=== PATIENT | female | born 1930 | race Caucasian/White ===

== ENCOUNTER 2017-02-21 16:50 | Emergency (ER) | payer OTHER, BC ==
[~2017-02-21] VITALS: Ht 147.3 cm; Wt 54.5 kg
[2017-02-21] MEDS ORDERED: ASPI81TA5 PO (17:13)
[2017-02-21] MEDS ORDERED: LORA-373 PO (17:15)
[2017-02-21] MEDS ORDERED: METO25TA6 PO (17:15)
[2017-02-21] MEDS ORDERED: DONE10TA7 PO (17:16)
[2017-02-21] MEDS ORDERED: CITA10TA4 PO (17:17)
[2017-02-21] MEDS ORDERED: ESOM1CAP16 PO (17:18)
[2017-02-21 17:19] VITALS: BP 182/84; PULSE 70; RESP 24; TEMP 97.7; O2SAT 94
[2017-02-21] MEDS ORDERED: fentanyl T-DERMAL (17:23)
[2017-02-21 17:25] VITALS: O2SAT 94
[2017-02-21 17:33] LABS: AUTOMATED NEUTROPHIL # 7.7 TH/MM3 (1.8-7.7); BASOPHIL # 0.1 TH/MM3 (0-0.2); BASOPHIL % 0.6 % (0.0-2.0); EOSINOPHIL % 0.2 % (0.0-4.0); HEMATOCRIT 39.5 % (35.0-46.0); HEMO FLAGS DIFF FINAL; LYMPH % 10.5 % (9.0-44.0); MEAN CELL VOLUME 84.3 FL (80.0-100.0); MEAN CORPUSCULAR HGB CONC 33.3 % (32.0-36.0); MONO % 5.6 % (0.0-8.0); NEUT % 83.1 % (16.0-70.0); PLATELET COUNT 346 TH/MM3 (150-450); RED BLOOD COUNT 4.69 MIL/MM3 (4.00-5.30); RED CELL DISTRIBUTION WIDTH 15.1 % (11.6-17.2); WHITE BLOOD COUNT 9.3 TH/MM3 (4.0-11.0)
[2017-02-21] MEDS ORDERED: SODIUM CHLOR 0.9% 1000 ML INJ 1,000 ML IV SCH (17:45)
--- NOTE | 2017-02-21 18:03 | RADRPT ---
EXAM DATE/TIME: 02/21/2017 17:46 [place] COMPARISON: No previous studies available for comparison. INDICATIONS : Nausea and vomiting X one week. ORAL CONTRAST: No oral contrast ingested. RADIATION DOSE: 5.38 CTDIvol (mGy) MEDICAL HISTORY : Hypertension. SURGICAL HISTORY : Hysterectomy. ENCOUNTER: Initial ACUITY: 1 week PAIN SCALE: 6/10 LOCATION: Abdomen TECHNIQUE: Volumetric scanning of the abdomen and pelvis was performed. Using automated exposure control and ad justment of the mA and/or kV according to patient size, radiation dose was kept as low as reasonably achievable to obtain optimal diagnostic quality images. FINDINGS: Evaluation of the solid organs of the abdomen is limited by the lack of intravenous contrast. The pa tient is status post cholecystectomy. Severe degenerative changes and scoliosis of the thoracolumbar spine are noted. There is a left flank hernia which contains a portion of the proximal descending c olon but results in no colonic obstruction. There is a rim-calcified right renal cyst measuring 16 m m. Uncomplicated sigmoid diverticulosis is noted. There is no acute inflammatory process within the abdomen or pelvis. CONCLUSION: 1. No acute inflammatory process within the abdomen or pelvis. 2. Left flank hernia which contains a portion of the proximal descending colon. 3. Rim-calcified right renal cyst measuring 16 mm. 4. Severe degenerative changes and scoliosis of the thoracolumbar spine. Jonatan Rust MD on February 21, 2017 at 17:54 Board Certified Radiologist. This report was verified electronically.
--- NOTE | 2017-02-21 18:05 | PD ---
HPI Chief Complaint: GI Complaint Time Seen by Provider: 16:55 Travel History International Travel<30 days: No Contact w/Intl Traveler<30days: No Traveled to known affect area: No History of Present Illness HPI This is an 86-year-old female who presents to the emergency department feeling unwell for one week, constant, severe, with multiple episodes of vomiting and loose stools 2-3 a day at the beginning. She's not been able to eat or drink anything. She denies any fevers or chills and denies any abdominal pain. She says she just feels "sick". She denies any chest pain or trouble breathing. She denies any recent antibiotic use. PFSH Past Medical History Depression: Yes GERD: Yes Hypertension: Yes ?: Not Past Surgical History Hysterectomy: Yes Social History Alcohol Use: No Tobacco Use: No Substance Use: No Allergies-Medications (Allergen,Severity, Reaction): Coded Allergies: No Known Allergies (Unverified , 02/21/17) Reported Meds & Prescriptions Reported Meds & Active Scripts Active Reported [fentanyl] 25 Mcg T-DERMAL Q3D Esomeprazole DR 40 Mg Capdr 40 Mg PO DAILY Donepezil 10 Mg Tab 10 Mg PO HS Lorazepam 0.5 Mg Tab 0.5 Mg PO Q8H PRN Metoprolol Succinate ER 24 HR (Metoprolol Succinate) 25 Mg Tab 25 Mg PO BID Aspirin DR (Aspirin) 81 Mg Tabdr 81 Mg PO DAILY Review of Systems Except as stated in HPI: all other systems reviewed are Neg Physical Exam Narrative GENERAL: Frail, ill appearing SKIN: Dry with skin tenting. HEAD: Atraumatic. Normocephalic. EYES: Pupils equal and round. No injection or drainage. ENT: Moist mucous membranes NECK: Trachea midline. CARDIOVASCULAR: Regular rate and rhythm. No murmur appreciated. RESPIRATORY: Clear to auscultation. Breath sounds equal bilaterally. GASTROINTESTINAL: Abdomen soft, non-tender, nondistended. MUSCULOSKELETAL: No obvious deformities. NEUROLOGICAL: Awake and alert. No obvious cranial nerve deficits. Moving all extremities. PSYCHIATRIC: Appropriate mood and affect; insight and judgment normal. Data Data Last Documented VS Vital Signs Date Time Temp Pulse Resp B/P Pulse Ox O2 Delivery O2 Flow Rate FiO2 02/21/17 17:25 94 Room Air 02/21/17 17:19 97.7 70 24 182/84 Orders Complete Blood Count With Diff (02/21/17 17:10) Comprehensive Metabolic Panel (02/21/17 17:10) Lipase (02/21/17 17:10) Iv Access Insert/Monitor (02/21/17 17:10) Ecg Monitoring (02/21/17 17:10) Oximetry (02/21/17 17:10) Lactic Acid (02/21/17 17:14) Sodium Chlor 0.9% 1000 Ml Inj (Ns 1000 M (02/21/17 17:45) Ct Abd/Pel W/O Iv Contrast (02/21/17 ) Electrocardiogram (02/21/17 ) Troponin I (02/21/17 17:33) Cath For Specimen (02/21/17 17:33) Urinalysis - C+S If Indicated (02/21/17 17:33) Ondansetron Inj (Zofran Inj) (02/21/17 18:45) Labs Laboratory Tests Test 02/21/17 02/21/17 02/21/17 17:10 17:20 18:15 White Blood Count 9.3 TH/MM3 Red Blood Count 4.69 MIL/MM3 Hemoglobin 13.1 GM/DL Hematocrit 39.5 % Mean Corpuscular Volume 84.3 FL Mean Corpuscular Hemoglobin 28.0 PG Mean Corpuscular Hemoglobin 33.3 % Concent Red Cell Distribution Width 15.1 % Platelet Count 346 TH/MM3 Mean Platelet Volume 6.7 FL Neutrophils (%) (Auto) 83.1 % Lymphocytes (%) (Auto) 10.5 % Monocytes (%) (Auto) 5.6 % Eosinophils (%) (Auto) 0.2 % Basophils (%) (Auto) 0.6 % Neutrophils # (Auto) 7.7 TH/MM3 Lymphocytes # (Auto) 1.0 TH/MM3 Monocytes # (Auto) 0.5 TH/MM3 Eosinophils # (Auto) 0.0 TH/MM3 Basophils # (Auto) 0.1 TH/MM3 CBC Comment DIFF FINAL Differential Comment Sodium Level 134 MEQ/L Potassium Level 3.7 MEQ/L Chloride Level 94 MEQ/L Carbon Dioxide Level 25.1 MEQ/L Anion Gap 15 MEQ/L Blood Urea Nitrogen 19 MG/DL Creatinine 0.44 MG/DL Estimat Glomerular Filtration 135 ML/MIN Rate Random Glucose 101 MG/DL Calcium Level 8.8 MG/DL Total Bilirubin 0.7 MG/DL Aspartate Amino Transf 22 U/L (AST/SGOT) Alanine Aminotransferase 19 U/L (ALT/SGPT) Alkaline Phosphatase 130 U/L Troponin I LESS THAN 0.02 NG/ML Total Protein 7.2 GM/DL Albumin 3.5 GM/DL Lipase 100 U/L Lactic Acid Level 1.2 mmol/L Urine Color YELLOW Urine Turbidity CLEAR Urine pH 5.5 Urine Specific [place] 1.023 Urine Protein 100 mg/dL Urine Glucose (UA) NEG mg/dL Urine Ketones 150 mg/dL Urine Occult Blood SMALL Urine Nitrite NEG Urine Bilirubin NEG Urine Urobilinogen 2.0 MG/DL Urine Leukocyte Esterase NEG Urine RBC 5 /hpf Urine WBC 1 /hpf Urine Squamous Epithelial <1 /hpf Cells Urine Hyaline Casts 1 /lpf Urine Mucus FEW /lpf Microscopic Urinalysis Comment CATH-CULT NOT IND MDM Medical Decision Making Medical Screen Exam Complete: Yes Emergency Medical Condition: Yes Interpretation(s) Afebrile, hypertensive No leukocytosis Electrolytes are reassuring Troponin is normal Lipase is normal Lactic acid is 1.2 Urinalysis: Ketones are present with no infection CT abdomen and pelvis: Left flank hernia with descending colon with no acute obstruction Differential Diagnosis Gastroenteritis, myocardial infarction, acute coronary syndrome, electrolyte abnormality, bowel obstruction Narrative Course This is an 86-year-old female who presents to the emergency department with vomiting and malaise. She is placed on a monitor and an IV was established. Labs were reassuring. Urinalysis is negative for infection. CT abdomen and pelvis was negative for acute surgical etiology of the patient's symptoms. Troponin was obtained which was reassuring. Patient feels much better after IV hydration. I suspect she has a viral syndrome. She will be discharged home with Zofran and can return to the emergency department if her symptoms worsen. Patient is amenable to this plan and feels much better. Diagnosis Primary Impression: Viral gastroenteritis Patient Instructions: General Instructions Additional Instructions: If you develop severe or worsening abdominal pain, fever>100.4, persistent vomiting or inability to eat or drink return to the emergency department immediately. Follow up with your primary care physician in 1-2 days for a check-up. Med/Other Pt SpecificInfo: Prescription(s) given Scripts Ondansetron Odt (Zofran Odt)4 Mg Tab4 Mg SL Q6HR PRN (Nausea/Vomiting) #15 TAB Prov:Brandi Nolan MD 02/21/17 Disposition: 01 DISCHARGE HOME Condition: Stable Brandi Nolan MD February 21, 2017 18:04
[2017-02-21 18:13] LABS: ANION GAP 15 MEQ/L (5-15); BICARBONATE 25.1 MEQ/L (21.0-32.0); BLOOD UREA NITROGEN 19 MG/DL (7-18); CHLORIDE 94 MEQ/L (98-107); GLOMERULAR FILTRATION RATE 135 ML/MIN (>89); POTASSIUM 3.7 MEQ/L (3.5-5.1); SODIUM (NA) 134 MEQ/L (136-145)
[2017-02-21 18:16] LABS: ALKALINE PHOSPHATASE 130 U/L (45-117); ALT (GPT) 19 U/L (10-53); AST (GOT) 22 U/L (15-37); TOTAL BILIRUBIN ADULT 0.7 MG/DL (0.2-1.0)
[2017-02-21 18:25] LABS: BLOOD, URINE SMALL (NEG); COMMENT (UR) CATH-CULT NOT IND; CULTURE IF INDICATED CATH CULTURE NOT IND; GLUCOSE,URINE NEG (NEG); HYALINE CAST, URINE 1 /lpf (RARE); KETONE, URINE 150 mg/dL (NEG); MUCUS URINE FEW /lpf (OCC); NITRITE,URINE NEG (NEG); PH, URINE 5.5 (5.0-8.5); SQUAMOUS EPITHELIAL CELL URINE <1 /hpf (0-5); URINE COLOR YELLOW (YELLW/STRAW)
[2017-02-21] MEDS ORDERED: ONDANSETRON HCL 4 MG/2 ML VIAL IV ONE (18:45)
[2017-02-21] MEDS ORDERED: ZOFR4TAB3 SL (18:49)
--- NOTE | 2017-02-21 21:24 | EKG ---
Date Performed: 02/21/2017 Time Performed: 18:07:00 PTAGE: 86 years EKG: Sinus rhythm NORMAL ECG NO PREVIOUS TRACING DOCTOR: Damion Robledo Interpretating Date/Time 02/21/2017 21:22:58
[2017-02-21 21:34] VITALS: BP 123/76; PULSE 88; RESP 16; O2SAT 98
[2017-02-22] MEDS ORDERED: FENT25T T-DERMAL (16:16)
== END 2017-02-21 23:42 | disposition home or self-care (01) ==
LOC: NEPC 16:50 → NEPD 23:42
DX: A08.4 Viral intestinal infection, unspecified (principal); I10 Essential (primary) hypertension; R53.81 Other malaise; Z79.899 Other long term (current) drug therapy
CPT/HCPCS: 74176; 80053; 81001; 83605; 83690; 84484; 85025; 93005; 96361; 96374; 99285; J2405; J7030; P9612